=== PATIENT | female | born 1960 | race Caucasian/White ===

== ENCOUNTER → 2017-09-05 | Outpatient (CLI) | payer BC ==
[~2017-09-05] MED LIST: ACHD5005 PO; GLIP10TA13 PO; LOSA100T28 PO; MONT10TA24 PO; [UNRECOGNIZED DRUG - CODE] PO
--- NOTE | 2017-09-05 11:18 | Diagnostic Imaging Report ---
INDICATION: Acute onset right upper quadrant pain. TECHNIQUE: Multiple grayscale sonographic images were obtained of the right upper quadrant of the abdomen. CORRELATION STUDY: None FINDINGS: LIVER: There is uniform echotexture within the visualized portions of the liver. There is normal, hepatopedal direction of flow within the main portal vein. Enlarged at 20 cm. GALLBLADDER: Shadowing, mobile gallstones are present. The stone at the gallbladder neck measures 17 mm. No evidence for abnormal gallbladder wall thickening and/or pericholecystic fluid. Some sludge also suggested. COMMON BILE DUCT: Obscured and not well visualized. No overt bile duct dilatation. PANCREAS: Largely obscured. RIGHT KIDNEY: Measures 10 cm. No hydronephrosis. AORTA/IVC: Not well visualized. OTHER: None. IMPRESSION: 1. Cholelithiasis along with likely some biliary sludge. The larger stone near the level of the gallbladder neck. Biliary tree not well visualized but does not appear to be overly dilated. 2. Hepatomegaly. Dictated by: Dictated on workstation # [id number]
[2017-09-05 11:28] LABS: HEMOGLOBIN 13.1 G/DL (11.5-16.0); MEAN PLATELET VOLUME 11.9 FL (7.4-10.4); RED BLOOD COUNT 4.77 10^6/uL (4.35-5.85); RED CELL DISTRIBUTION WIDTH 14.3 % (10.0-14.5); WHITE BLOOD COUNT 13.8 10^3/uL (4.3-11.0)
[2017-09-05 11:40] LABS: ALANINE AMINOTRANSFERASE 57 U/L (0-55); ALBUMIN 4.2 GM/DL (3.2-4.5); ALKALINE PHOSPHATASE 90 U/L (40-136); AMYLASE 45 U/L (25-125); BILIRUBIN,TOTAL 0.5 MG/DL (0.1-1.0); BUN/CREATININE RATIO 17; CALCIUM 10.2 MG/DL (8.5-10.1); CARBON DIOXIDE 24 MMOL/L (21-32); CHLORIDE 103 MMOL/L (98-107); CREATININE SERUM 0.86 MG/DL (0.60-1.30); GFR ESTIMATED > 60; GLUCOSE 256 MG/DL (70-105); LIPASE 13 U/L (8-78); POTASSIUM 4.2 MMOL/L (3.6-5.0); SODIUM 139 MMOL/L (135-145); TOTAL PROTEIN 7.4 GM/DL (6.4-8.2)
== END ==
LOC: RAD 10:25
PROVIDERS: ATTEND Surgery
DX: K80.20 Calculus of gallbladder without cholecystitis without obstruction (principal); R16.0 Hepatomegaly, not elsewhere classified
CPT/HCPCS: 36415; 76705; 80053; 82150; 83036; 83690; 83970; 84100; 85027

== ENCOUNTER 2017-09-06 05:27 | Outpatient (CLI) | payer BC ==
[~2017-09-06] VITALS: Ht 157.5 cm; Wt 115.7 kg
[2017-09-06] MEDS ORDERED: LOSA100T28 PO (12:35)
[2017-09-06] MEDS ORDERED: [UNRECOGNIZED DRUG - CODE] PO (12:35)
[2017-09-06] MEDS ORDERED: MONT10TA24 PO (12:35)
[2017-09-06] MEDS ORDERED: GLIP10TA13 PO (12:35)
[2017-09-09] MEDS ORDERED: ACHD5005 PO (17:06)
== END 2017-09-06 12:56 ==
LOC: PREOP 05:27
PROVIDERS: ATTEND Surgery
DX: Z01.818 Encounter for other preprocedural examination (principal); K80.20 Calculus of gallbladder without cholecystitis without obstruction

== ENCOUNTER 2017-09-07 09:30 | Outpatient (RCR) | payer BC ==
[~2017-09-07 09:30] MED LIST changes: -ACHD5005 PO; -LOSA100T28 PO; +LOSA100T8 PO
[2017-09-09] MEDS ORDERED: ACHD5005 PO (17:06)
== END 2017-10-01 | disposition home or self-care (01) ==
LOC: LAB 09:30
PROVIDERS: ATTEND Surgery
DX: E83.52 Hypercalcemia (principal)
CPT/HCPCS: 36415; 82340

== ENCOUNTER 2017-09-09 10:27 | Day surgery (SDC) | payer BC ==
[~2017-09-09] VITALS: Ht 157.5 cm; Wt 115.7 kg
[~2017-09-09 10:27] MED LIST changes: +LOSA100T28 PO; -LOSA100T8 PO
[2017-09-09] MEDS ORDERED: MIDAZOLAM 2 MG/2 ML (VERSED) VIAL ONE ×2 (10:58→14:15)
[2017-09-09] MEDS ORDERED: ONDANSETRON 4 MG/2 ML (SDV) Z0FRAN ONE ×3 (10:58→15:30)
[2017-09-09 11:00] VITALS: BP 144/77
[2017-09-09] MEDS ORDERED: ONDANSETRON 4 MG/2 ML (SDV) Z0FRAN IV ONE (11:00)
[2017-09-09] MEDS ORDERED: MIDAZOLAM 2 MG/2 ML (VERSED) VIAL IV ONE (11:00)
[2017-09-09] MEDS ORDERED: FAMOTIDINE 20MG/2ML IV (PEPCID) IV ONE (11:00)
[2017-09-09 11:23] LABS: BASOPHILS # (AUTO) 0.1 10^3/uL (0.0-0.1); BASOPHILS % (AUTO) 1 % (0-10); EOSINOPHILS # (AUTO) 0.2 10^3/uL (0.0-0.3); EOSINOPHILS % (AUTO) 3 % (0-10); HEMATOCRIT 41 % (35-52); HEMOGLOBIN 13.3 G/DL (11.5-16.0); LYMPHOCYTES # (AUTO) 1.9 X 10^3 (1.0-4.0); LYMPHOCYTES % (AUTO) 21 % (12-44); MEAN CORPUSCULAR HEMOGLOBIN 28 PG (25-34); MEAN CORPUSCULAR HGB CONC 33 G/DL (32-36); MEAN CORPUSCULAR VOLUME 85 FL (80-99); MEAN PLATELET VOLUME 11.5 FL (7.4-10.4); MONOCYTES # (AUTO) 0.5 X 10^3 (0.0-1.0); MONOCYTES % (AUTO) 5 % (0-12); NEUTROPHILS # (AUTO) 6.6 X 10^3 (1.8-7.8); NEUTROPHILS % (AUTO) 71 % (42-75); PLATELET COUNT 305 10^3/uL (130-400); RED BLOOD COUNT 4.83 10^6/uL (4.35-5.85); RED CELL DISTRIBUTION WIDTH 14.6 % (10.0-14.5); WHITE BLOOD COUNT 9.2 10^3/uL (4.3-11.0)
[2017-09-09] MEDS: LACTATED RINGERS 1,000 ML IV PRN ×3 (11:24→18:00)
[2017-09-09] MEDS ORDERED: metroNIDAZOLE 500MG/100ML IVPB 100 ML IV ONE (11:30)
[2017-09-09] MEDS ORDERED: metroNIDAZOLE 500MG/100ML IVPB 100 ML ONE (11:51)
[2017-09-09] MEDS ORDERED: CLINDAMYCIN 600 MG/50 ML IVPB 50 ML IV ONE ×2 (11:51→12:00)
--- NOTE | 2017-09-09 13:14 | Progress Note-Pre Operative ---
Pre-Operative Progress Note H&P Reviewed The H&P was reviewed, patient examined and no changes noted. Date Seen by Provider: Sep 05, 2017 Time Seen by Provider: 11:20 Date H&P Reviewed: Sep 09, 2017 Time H&P Reviewed: 13:14 Pre-Operative Diagnosis: Gallstones BRIANNA COOK MD Sep 09, 2017 1:14 pm
[2017-09-09] MEDS ORDERED: ROCURONIUM 10 MG/ML 5 ML SYRINGE IV ONE (14:14)
[2017-09-09] MEDS ORDERED: LIDOCAINE PF 2% 5 ML (XYLOCAINE) VIAL ONE (14:15)
[2017-09-09] MEDS ORDERED: LACTATED RINGERS 1,000 ML IV ONE (14:15)
[2017-09-09] MEDS ORDERED: fentaNYL INJECTION 100 MCG/2 ML AMP ONE ×3 (14:15→19:47)
[2017-09-09] MEDS ORDERED: proPOfol 200 MG/20 ML (DIPRIVAN) VIAL IV ONE (14:15)
[2017-09-09] MEDS ORDERED: BUP/EPI 0.5% 1:200,000 (SENSORCAINE) 30 ML VIAL ONE (14:20)
[2017-09-09] MEDS ORDERED: HYDROmorphone 1 MG/ML (DILAUDID) 1 ML SYRINGE ONE (15:31)
[2017-09-09] MEDS ORDERED: SEVOFLURANE (ULTANE) 15 ML INHAL SOLN ONE ×2 (16:34→16:58)
[2017-09-09] MEDS ORDERED: GLYCOPYRROLATE 0.2 MG/ML (ROBINUL) 2 ML VIAL ONE (16:34)
[2017-09-09] MEDS ORDERED: NEOSTIGMINE 1 MG/ML 5 ML SYRINGE ONE (16:34)
--- NOTE | 2017-09-09 17:05 | Operative Report ---
Operative Report Date of Procedure/Surgery Sep 09, 2017 Surgeon (s) BRIANNA COOK MD Manager Of Corporate (s): N/A Post-Operative Diagnosis Gallstones Acute hemorrhagic cholecystitis Procedure Performed Robotic-assisted cholecystectomy Description of Procedure Anesthesia Type: General Estimated blood loss (mL): 100 Specimen(s) collected/removed Gallbladder Description of the Procedure Indication for the procedure: This lady presented with symptomatic gallstones and features of early acute cholecystitis. She was offered cholecystectomy using minimally invasive technique with robotic assistance. Informed consent was obtained after reviewing the operative details and complications of infection, bile leak and cardiorespiratory dysfunction. Description of the procedure: She was placed supine on the operating table and general anesthesia induced. Clindamycin and Flagyl were administered intravenously as prophylaxis against wound infection. Sequential compression devices were placed around her legs, to minimize the risk of venous thrombosis. Abdomen was prepared and draped in the usual sterile manner. Pneumoperitoneum was established using a Veress needle introduced over the subumbilical region. Intra-abdominal pressure was maintained at 17 mmHg(morbid obesity). A 12 mm trocar was placed and anatomy visualized using the high definition, 3- dimensional laparoscope associated with da Meghna system. Gallbladder was tense , acutely inflamed and edematous with punctate hemorrhages on the surface, indicating acute, hemorrhagic cholecystitis. Under direct view, I placed an 8 mm trocar over each side of the abdomen, followed by an 8 mm trocar over the left subcostal region. The patient was turned and the fundus Trendelenburg position, with the right side tilted up. The robotic system was docked in place. The fundus of the gallbladder was retracted cephalad and the infundibulum grasped with Cadiere forceps. Inflamed and thickened tissue around the neck of the gallbladder was dissected using a combination of sharp and blunt dissection , delineating the cystic duct and artery. Both were divided between locking clips. Cholecystectomy was then completed using the hook cautery. The gallbladder was then placed in an Endo Catch bag and removed via the subumbilical trocar site. The fascia over this incision had to be extended laterally to allow retrieval of the large gallbladder, packed with stones. Subsequently, the fascia was closed using #1 Vicryl, in an interrupted fashion. Subcutaneous tissue was approximated using 3-0 Vicryl and skin using 4-0 Vicryl, in a subcuticular fashion. 0.5 percent Marcaine with epinephrine was infiltrated along the incisions, both preemptively and at the conclusion of the operation. She tolerated the procedure well, was extubated in the operating room and taken to the recovery room in a stable condition. Findings of the Procedure See op report Allergies and Home Medications Allergies Coded Allergies: levofloxacin (Verified Allergy, Intermediate, JOINT PAIN, 09/06/17) Sulfa (Sulfonamide Antibiotics) (Verified Allergy, Mild, GI UPSET, 09/06/17) Penicillins (Verified Allergy, Unknown, 09/06/17) azithromycin (Unverified Allergy, Unknown, 09/06/17) erythromycin base (Unverified Allergy, Unknown, 09/06/17) Home Medications Glipizide 10 Mg Tablet, 10 MG PO DAILY, (Reported) Losartan Potassium 100 Mg Tablet, 100 MG PO DAILY, (Reported) Montelukast Sodium 10 Mg Tablet, 10 MG PO DAILY, (Reported) Thyroid,Pork 195 Mg Tablet, 195 MG PO DAILY, (Reported) Patient Home Medication List Home Medication List Reviewed: Yes BRIANNA COOK MD Sep 09, 2017 5:05 pm
[2017-09-09] MEDS ORDERED: ACHD5005 PO (17:06)
--- NOTE | 2017-09-09 17:07 | Discharge Inst-Simple/Standard ---
Discharge Inst-Standard Discharge Medications New, Converted or Re-Newed RX: RX on Chart Patient Instructions/Follow Up Plan of Care/Instructions/FU: Band-Aids off in 48 hours. Incentive spirometry. Follow-up in 2 weeks Activity as Tolerated: Yes Discharge Diet: ADA BRIANNA Kam MD Sep 09, 2017 5:07 pm
[2017-09-09] MEDS: HYDROmorphone 1 MG/ML (DILAUDID) 1 ML SYRINGE IV PRN ×2 (17:31→17:42)
[2017-09-09] MEDS ORDERED: fentaNYL INJECTION 100 MCG/2 ML AMP IVP PRN (17:45)
[2017-09-09] MEDS ORDERED: ONDANSETRON 4 MG/2 ML (SDV) Z0FRAN IVP PRN (17:45)
[2017-09-09] MEDS ORDERED: PROMETHAZINE INJ 25 MG/ML (PHENERGAN) AMP IVP PRN (17:45)
[2017-09-09] MEDS ORDERED: PROMETHAZINE INJ 25 MG/ML (PHENERGAN) AMP ONE (17:51)
[2017-09-09 19:30] VITALS: BP 145/77
[2017-09-09] MEDS ORDERED: fentaNYL INJECTION 100 MCG/2 ML AMP IVP ONE (19:45)
[2017-09-09] MEDS ORDERED: ONDANSETRON 4 MG/2 ML (SDV) Z0FRAN IVP ONE (19:45)
[2017-09-09 22:20] VITALS: BP 149/69
[2017-09-09 22:30] VITALS: BP 149/69
--- NOTE | 2017-09-10 07:02 | Anesthesia-General Post-Op ---
General Patient Condition Mental Status/LOC: Same as Preop Cardiovascular: Satisfactory Nausea/Vomiting: Absent Respiratory: Satisfactory Pain: Controlled Complications: Absent Post Op Complications Complications None Follow Up Care/Instructions Patient Instructions None needed. Anesthesia/Patient Condition Patient Condition Patient is doing well, no complaints, stable vital signs, no apparent adverse anesthesia problems. No complications reported per nursing. ROSE SOLIS CRNA Sep 10, 2017 07:02
== END 2017-09-09 22:30 | disposition home or self-care (01) ==
LOC: SDC 10:27
PROVIDERS: ATTEND Surgery
DX: K80.00 Calculus of gallbladder with acute cholecystitis without obstruction (principal); I10 Essential (primary) hypertension; E11.9 Type 2 diabetes mellitus without complications; J45.909 Unspecified asthma, uncomplicated; G47.33 Obstructive sleep apnea (adult) (pediatric); E66.01 Morbid (severe) obesity due to excess calories; Z68.42 Body mass index [BMI] 45.0-49.9, adult; Z79.84 Long term (current) use of oral hypoglycemic drugs; Z79.899 Other long term (current) drug therapy
CPT/HCPCS: 36415; 82962; 85025; 87081; 94664

== ENCOUNTER → 2022-01-29 | Outpatient (CLI) | payer BC ==
[~2022-01-29] MED LIST changes: +ACHD5005 PO; -LOSA100T28 PO; +LOSA100T57 PO; +MONT-40 PO; -MONT10TA24 PO
== END ==
LOC: RAD 15:44
PROVIDERS: ATTEND Nurse Practitioner Family
DX: E03.9 Hypothyroidism, unspecified (principal); E04.9 Nontoxic goiter, unspecified

== ENCOUNTER → 2022-04-23 | Outpatient (CLI) | payer BC ==
[~2022-04-23] MED LIST changes: +ACET600C PO; +ACHYD1T PO; +ASCO100024 PO; +BITTERMELON PO; +BLUE500T PO; +CATHETER FLUSH 10 ML SYR IV PRN; +EMPA25TA PO; +FENU610C PO; +FURO40TA4 PO; +GYMNEMA SYLVESTRE PO; +IOHEXOL 350 MG/ML 100 ML (OMNIPAQUE 350) VIAL IV ONE; +KETO10TA PO; +MAGN100C6 PO; +MELA3TAB39 PO; +MULT-1136 PO; +NS 100 ML (IVPB) BAG IV ONE; +ONDA4TAB11 PO; +SOUR1000 PO; +THYR60TA27 PO; +TURM500C13 PO; +VALE500C PO; +VIT1CAPS4 PO; +VITA-246 PO; +ZINC PICOLINATE PO; +[UNRECOGNIZED DRUG - OTHER] PO; +[UNRECOGNIZED DRUG - OTHER] PO
[2022-04-23 10:48] LABS: BASOPHILS # (AUTO) 0.1 10^3/uL (0.0-0.1); BASOPHILS % (AUTO) 0 % (0-10); EOSINOPHILS % (AUTO) 0 % (0-10); HEMATOCRIT 47 % (35-52); HEMOGLOBIN 15.5 g/dL (11.5-16.0); LYMPHOCYTES # (AUTO) 1.4 10^3/uL (1.0-4.0); LYMPHOCYTES % (AUTO) 8 % (12-44); MEAN CORPUSCULAR HEMOGLOBIN 28 pg (25-34); MEAN CORPUSCULAR HGB CONC 33 g/dL (32-36); MEAN CORPUSCULAR VOLUME 85 fL (80-99); MEAN PLATELET VOLUME 11.3 fL (9.0-12.2); MONOCYTES # (AUTO) 0.9 10^3/uL (0.0-1.0); MONOCYTES % (AUTO) 5 % (0-12); NEUTROPHILS # (AUTO) 13.8 10^3/uL (1.8-7.8); NEUTROPHILS % (AUTO) 85 % (42-75); PLATELET COUNT 415 10^3/uL (130-400); WHITE BLOOD COUNT 16.2 10^3/uL (4.3-11.0)
[2022-04-23 11:11] LABS: CALCIUM 10.1 MG/DL (8.5-10.1); CREATININE SERUM 0.89 MG/DL (0.60-1.30); POTASSIUM 4.3 MMOL/L (3.6-5.0)
[2022-04-23 11:15] LABS: BAND NEUTROPHILS 2 %; BASOPHILS % (MANUAL) 1 %; EOSINOPHILS % (MANUAL) 1 %; LYMPHOCYTES % (MANUAL) 8 %; MONOCYTES % (MANUAL) 3 %; NEUTROPHILS % (MANUAL) 85 %; RBC MORPH NORMAL
--- NOTE | 2022-04-23 11:46 | Diagnostic Imaging Report ---
CT ABDOMEN/PELVIS W TECHNIQUE: Multiple contiguous axial images were obtained through the abdomen and pelvis after administration of intravenous contrast. All CT scans use one or more of the following dose optimizing techniques: automated exposure control, MA and/or KvP adjustment based on patient size and exam type or iterative reconstruction. INDICATION: Abdominal pain, evaluate for strangulated hernia. COMPARISON: None available. FINDINGS: Lower chest: The lung bases are clear. No pericardial or pleural effusion. Peritoneum: No free intraperitoneal air or fluid. Liver and biliary system: Diffuse hypoattenuation of the liver is indicative of steatosis. No concerning focal hepatic lesion. The main portal vein is patent. The gallbladder is normal. No biliary duct dilation. Spleen and Pancreas: Spleen is normal. The pancreas enhances normally without mass lesion or peripancreatic inflammatory changes. Adrenals: Normal. tract: The kidneys enhance normally without suspicious mass or obstruction. Urinary bladder is distended without wall thickening. Uterus and ovaries are normal in appearance. GI tract: Stomach is partially filled with fluid. There is small bowel obstruction secondary to a periumbilical hernia which contains multiple loops of small bowel, with the efferent limbs being decompressed and the loops up to the hernia being dilated. Fluid is present within the hernia sac and is most indicative of strangulation. The bowel maintains normal enhancement pattern without features of ischemia. Vasculature and Lymph nodes: Normal caliber aorta. No abdominal or pelvic lymphadenopathy. Musculoskeletal: No concerning osseous lesion. IMPRESSION: 1. Small bowel obstruction due to periumbilical hernia containing decompressed small bowel loops, but the upstream small bowel is dilated and fluid-filled. 2. Fluid within the hernia sac is highly suspicious for strangulation. 3. There are no features of bowel ischemia at this time. Additionally, there is no bowel perforation or abscess. 4. Diffuse hepatic steatosis. Report was given to Rosalind Patiño's nurse, by Dr. Lr at 11:42 AM on 04/23/2022. Dictated by: Dictated on workstation # [id number]
--- NOTE | 2022-04-24 12:22 | Anesthesia-General Post-Op ---
General Patient Condition Mental Status/LOC: Same as Preop Cardiovascular: Satisfactory Nausea/Vomiting: Absent Respiratory: Satisfactory Pain: Controlled Complications: Absent Post Op Complications Complications None Follow Up Care/Instructions Patient Instructions None needed. Anesthesia/Patient Condition Patient Condition Patient is doing well, no complaints, stable vital signs, no apparent adverse anesthesia problems. No complications reported per nursing. EPIFANIO NGUYỄN CRNA Apr 24, 2022 12:22
== END ==
LOC: RAD 10:18
PROVIDERS: ATTEND Nurse Practitioner Family
DX: K42.9 Umbilical hernia without obstruction or gangrene (principal); K76.0 Fatty (change of) liver, not elsewhere classified
CPT/HCPCS: 36415; 74177; 80048; 85007; 85027

== ENCOUNTER → 2022-07-18 | Outpatient (CLI) | payer BC ==
[~2022-07-18] MED LIST changes: -CATHETER FLUSH 10 ML SYR IV PRN; -IOHEXOL 350 MG/ML 100 ML (OMNIPAQUE 350) VIAL IV ONE; -NS 100 ML (IVPB) BAG IV ONE
--- NOTE | 2022-07-18 16:57 | Diagnostic Imaging Report ---
PROCEDURE: US Non-ob pelvis comp/trans. TECHNIQUE: Multiple Real-time grayscale images were obtained of the pelvis in various projections endovaginally. Transabdominal imaging was also performed. INDICATION: Abnormal vaginal bleeding, postmenopausal. COMPARISON: None. FINDINGS: The uterus measures 9.1 x 3.4 x 4.7 cm in size. The endometrium is thickened measuring 1.3 cm. No discrete uterine masses are seen. The right ovary measures 2.2 x 0.7 x 1.5 cm and the left measures 2.0 x 0.9 x 2.5 cm. Blood flow appears normal. No free fluid is seen. IMPRESSION: Thickened endometrium in a postmenopausal female with vaginal bleeding. Recommend tissue sampling. Dictated by: Dictated on workstation # [id number]
--- NOTE | 2022-07-18 17:09 | Diagnostic Imaging Report ---
PROCEDURE: US Thyroid. TECHNIQUE: Multiple real-time grayscale images were obtained of the thyroid in various projections. INDICATION: Hypothyroidism. COMPARISON: None. FINDINGS: Right thyroid lobe: Size (cm): 3.3 x 0.8 x 0.9 Echotexture: Normal. Vascularity: Normal. Nodules: None. Isthmus: Size (cm): 0.3 Nodules: None. Left thyroid lobe: Size (cm): 2.9 x 0.8 x 0.9 Echotexture: Normal. Vascularity: Normal. Nodules: None. IMPRESSION: 1. Unremarkable thyroid sonogram. Dictated by: Dictated on workstation # [id number]
== END ==
LOC: RAD 13:19
PROVIDERS: ATTEND Nurse Practitioner Family
DX: E03.9 Hypothyroidism, unspecified (principal); N95.0 Postmenopausal bleeding
CPT/HCPCS: 76536; 76830; 76856